=== PATIENT | female | born 1990 | race Caucasian/White ===

== ENCOUNTER 2017-12-14 16:00 | Emergency (ER) | payer BC, MEDICAID, OTHER ==
[2017-12-14] MEDS ORDERED: traMADol 50 MG Tab PO ONE (16:01)
[2017-12-14 16:05] VITALS: BP 110/69
--- NOTE | 2017-12-14 16:17 | EDM.PDOC ---
ED HPI GENERAL MEDICAL PROBLEM - General Chief Complaint: Upper Extremity Injury/Pain Stated Complaint: RIGHT SHOULDER PAIN Time Seen by Provider: 12/14/17 16:17 Source of Information: Reports: Patient History Limitations: Reports: No Limitations - History of Present Illness INITIAL COMMENTS - FREE TEXT/NARRATIVE: Clarissa is a 27 year old female who presents to the ED with complaints of right shoulder pain. She reports that on Saturday morning, she was doing her usual morning stretches and felt something pop. She then had instant pain in her right shoulder. She reports she made an appointment to be seen in the clinic on Saturday, but today she couldn't tolerate the pain so she came to the ED. She does report she has full ROM, but feels some "grinding" and has pain with certain movements. Denies any numbness or tingling of affected extremity. Denies any injury outside of the stretching. She has been taking Tylenol and ibuprofen for the pain without relief. Onset Date: 12/13/17 Duration: Constant Location: Reports: Upper Extremity, Right Quality: Reports: Ache, Burning, Stabbing Severity: Moderate Improves with: Reports: Medication Worsens with: Reports: Movement Context: Reports: Activity Associated Symptoms: Denies: Confusion, Chest Pain, Cough, cough w sputum, Diaphoresis, Fever/Chills, Headaches, Loss of Appetite, Malaise, Nausea/Vomiting , Rash, Seizure, Shortness of Breath (pain worse with deep breathing), Syncope, Weakness Right Shoulder Pain Score (Numeric/FACES): 6 - Related Data Allergies Allergy/AdvReac Type Severity Reaction Status Date / Time fluconazole Allergy Cannot Verified 02/16/16 02:37 Remember Home Meds: Home Meds Acetaminophen 650 mg PO Q4H PRN 12/14/17 [History] Past Medical History - Past Health History Medical/Surgical History: Denies Medical/Surgical History FLIGHT AGENT History: Reports: Other OB/BYN History: hx abnormal pap smears Endocrine/Metabolic History: Reports: Other (See Below) Other Endocrine/Metabolic History: abnormal TSH with - Past Surgical History Female Surgical History: Reports: Tubal Ligation Musculoskeletal Surgical History: Reports: Shoulder Surgery Social & Family History - Family History Family Medical History: Noncontributory - Tobacco Use Smoking Status *Q: Current Every Day Smoker Years of Tobacco use: 14 Packs/Tins Daily: 1 Used Tobacco, but Quit: No Second Hand Smoke Exposure: No - Caffeine Use Caffeine Use: Reports: Coffee - Alcohol Use Days Per Week of Alcohol Use: 0 - Recreational Drug Use Recreational Drug Use: No - Living Situation & Occupation Living situation: Reports: , with Spouse, with Family Occupation: Employed Review of Systems - Review of Systems Review Of Systems: ROS reveals no pertinent complaints other than HPI. ED EXAM, GENERAL - Physical Exam Exam: See Below Exam Limited By: No Limitations General Appearance: Alert, WD/WN, No Apparent Distress Head: Atraumatic, Normocephalic Neck: Normal Inspection, Supple, Non-Tender, Full Range of Motion Respiratory/Chest: No Respiratory Distress, Lungs Clear, Normal Breath Sounds, No Accessory Muscle Use, Chest Non-Tender Cardiovascular: Normal Peripheral Pulses, Regular Rate, Rhythm, No Edema, No Gallop, No JVD, No Murmur, No Rub Back Exam: Normal Inspection, Full Range of Motion, NT Extremities: Normal Range of Motion, Normal Capillary Refill, Arm Pain (right shoulder), Other (pain with ROM to right shoulder, crepitus, tenderness to posterior right scapula). No: Slow Capillary Refill, Joint Swelling, Increased Warmth Neurological: Alert, Oriented, CN II-XII Intact, Normal Cognition, Normal Gait, Normal Reflexes, No Motor/Sensory Deficits Psychiatric: Normal Affect, Normal Mood Skin Exam: Warm, Dry, Intact, Normal Color, No Rash Course - Vital Signs Last Recorded V/S: Last Vital Signs Temp 97.9 F 12/14/17 16:02 Pulse 76 12/14/17 16:02 Resp 16 12/14/17 16:02 BP 110/69 12/14/17 16:02 Pulse Ox 98 12/14/17 16:02 - Orders/Labs/Meds Meds: Medications Discontinued Medications Generic Name Dose Route Start Last Admin Trade Name Freq PRN Reason Stop Dose Admin Ketorolac Tromethamine 60 mg 12/14/17 16:32 12/14/17 16:35 Toradol IM 12/14/17 16:33 60 mg ONETIME ONE Administration Tramadol HCl 2 packet 12/14/17 16:56 12/14/17 17:05 Take Home: Tramadol 50 Mg, 4 Tab Pack PO 12/14/17 16:57 2 packet ONETIME ONE Administration - Re-Assessments/Exams Free Text/Narrative Re-Assessment/Exam: 12/14/17 16:55 Right shoulder xray shows no fracture or misalignment. Departure - Departure Time of Disposition: 16:55 Disposition: Home, Self-Care 01 Condition: Good Clinical Impression: Right shoulder strain Qualifiers: Encounter type: initial encounter Qualified Code(s): S46.911A - Strain of unspecified muscle, fascia and tendon at shoulder and upper arm level, right arm , initial encounter - Discharge Information Instructions: Shoulder Pain, [id number], Pain Medicine Instructions, Easy-to- Read Referrals: Sha Dietz PA-C [Physician Compliance Advisor] - Forms: ED Department Discharge Additional Instructions: Right shoulder xray negative Tramadol every 8 hours as needed for pain Alternate ice and heat to affected area for comfort Recommend PT. Patient does not wish to see PT at this time. Follow up with PCP this week if symptoms worsen or do not improve
[2017-12-14] MEDS ORDERED: Ketorolac 60 MG/2 ML SDV IM ONE (16:32)
[2017-12-14] MEDS ORDERED: Take Home: traMADol 50 MG, 4 Tab Pack PO ONE (16:56)
== END 2017-12-14 17:05 | disposition home or self-care (01) ==
LOC: CC.ED 16:00
DX: S46.911A Strain of unspecified muscle, fascia and tendon at shoulder and upper arm level, right arm, initial encounter (principal); F17.210 Nicotine dependence, cigarettes, uncomplicated; X50.9XXA Other and unspecified overexertion or strenuous movements or postures, initial encounter
CPT/HCPCS: 73030; 96372; 99283; A9270; J1885

== ENCOUNTER 2021-12-07 17:29 | Emergency (ER) | payer BC ==
[2021-12-07 17:50] VITALS: BP 108/83; PULSE 94
== END 2021-12-07 18:05 | disposition home or self-care (01) ==
LOC: CC.ED 17:29
DX: J10.1 Influenza due to other identified influenza virus with other respiratory manifestations (principal); Z88.8 Allergy status to other drugs, medicaments and biological substances; Z72.0 Tobacco use; Z20.822 Contact with and (suspected) exposure to COVID-19
CPT/HCPCS: 87804; 99283; U0002

== ENCOUNTER 2022-03-09 10:32 | Emergency (ER) | payer BC, MEDICAID ==
[2022-03-09 10:45] VITALS: BP 113/74; PULSE 69
[2022-03-09] MEDS ORDERED: Diphtheria,Pertussis(Acell),Tetanus Vaccine 0.5 ML Syringe IM ONE (10:51)
[2022-03-09] MEDS ORDERED: Lidocaine 1% 5 ML VIAL INJECT ONE (10:52)
[2022-03-09] MEDS ORDERED: Bacitracin Oint 28.35 GM Tube TOP ONE (10:53)
[2022-03-09] MEDS ORDERED: Bacitracin/Neomycin/Polymyxin B Oint 0.9 GM U/D Packet TOP ONE (11:02)
== END 2022-03-09 11:35 | disposition home or self-care (01) ==
LOC: CC.ED 10:32 → SUPCPDRO 10:32 → CC.ED 11:35
DX: S61.012A Laceration without foreign body of left thumb without damage to nail, initial encounter (principal); Z88.8 Allergy status to other drugs, medicaments and biological substances; Z72.0 Tobacco use; Z23 Encounter for immunization; W26.8XXA Contact with other sharp object(s), not elsewhere classified, initial encounter
CPT/HCPCS: 12001; 90471; 90715; 99283; 99283-25; A9270-GY

== ENCOUNTER 2023-09-05 18:27 | Emergency (ER) | payer BC, MEDICAID ==
[2023-09-05 18:55] LABS: BASOPHILS ABSOLUTE AUTO 0.08 10^3/uL (0.00-0.50); BASOPHILS PERCENT AUTO 0.6 % (0-1); EOSINOPHILS ABSOLUTE AUTO 0.19 10^3/uL (0.00-1.50); EOSINOPHILS PERCENT AUTO 1.5 % (0-6); HEMATOCRIT 38.3 % (37.0-47.0); HEMOGLOBIN 13.1 g/dL (12.0-16.0); IMMATURE GRAN ABSOLUTE AUTO 0.01 10^3/uL (0.00-0.49); IMMATURE GRAN PERCENT AUTO 0.1 % (0.0-4.9); LYMPHOCYTES ABSOLUTE AUTO 3.68 10^3/uL (0.60-5.00); LYMPHOCYTES PERCENT AUTO 29.1 % (24-44); MEAN CORPUSCULAR HEMOGLOBIN 31.5 pg (27.0-32.0); MEAN CORPUSCULAR HGB CONC 34.2 g/dL (32.0-36.0); MEAN CORPUSCULAR VOLUME 92.1 fL (83.0-97.0); MONOCYTES ABSOLUTE AUTO 1.01 10^3/uL (0.00-1.50); NEUTROPHILS ABSOLUTE AUTO 7.67 x10^3/uL (1.80-8.00); NEUTROPHILS PERCENT AUTO 60.7 % (41-71); PLATELET COUNT,PLT 286 10^3/uL (150-400); RED BLOOD CELL COUNT 4.16 x10^6/uL (4.00-5.50); WHITE BLOOD CELL COUNT,WBC 12.6 10^3/uL (4.0-11.0)
[2023-09-05] MEDS ORDERED: Iopamidol 755 Mg/ML 100 ML Bottle IVPUSH ONE (18:55)
[2023-09-05] MEDS ORDERED: Sodium Chloride 0.9% 1,000 ML IV ONE (19:05)
[2023-09-05 19:08] LABS: ALANINE AMINOTRANSFERASE,ALT 18 U/L (12-78); ALBUMIN 3.9 g/dL (3.4-5.0); ALKALINE PHOSPHATASE 58 U/L (46-116); ASPARTATE AMNIOTRANSFERASE,AST 11 U/L (15-37); BILIRUBIN TOTAL 0.2 mg/dL (0.0-1.0); BLOOD UREA NITROGEN,BUN 6 mg/dL (7-18); C-REACTIVE PROTEIN 0.07 mg/dL (<=0.30); CALCIUM 9.2 mg/dL (8.4-10.1); CARBON DIOXIDE,CO2 27 mmol/L (21-32); CHLORIDE,CL 103 mEq/L (98-106); CREATININE 0.6 mg/dL (0.6-1.0); GLUCOSE RANDOM 89 mg/dL (75-99); LIPASE 37 U/L (16-77); POTASSIUM,K 3.6 mEq/L (3.5-5.0); PROTEIN TOTAL,TP 7.2 g/dL (6.4-8.2); SODIUM,NA 138 mEq/L (136-145)
[2023-09-05 19:09] LABS: ESTIMATED GFR 121 mL/min (>=60)
[2023-09-05 19:16] LABS: APPEARANCE,URINE CLEAR (CLEAR); BILIRUBIN,URINE NEGATIVE (NEGATIVE); COLOR,URINE YELLOW (YELLOW); GLUCOSE,URINE NEGATIVE (NEGATIVE); KETONES,URINE NEGATIVE (NEGATIVE); LEUKOCYTE ESTERASE,URINE NEGATIVE (NEGATIVE); NITRITE,URINE NEGATIVE (NEGATIVE); OCCULT BLOOD,URINE TRACE-INTACT (NEGATIVE); PH,URINE 7.5 (4.5-8.0); PROTEIN,URINE NEGATIVE (NEGATIVE); UROBILINOGEN,URINE 0.2 EU/dL (0.2-1.0)
[2023-09-05 19:22] LABS: BACTERIA,URINE FEW /HPF (NOT SEEN); EPITHELIAL CELLS,URINE FEW /HPF (NOT SEEN); RBC,URINE 0-5 /HPF (0-5); WBC,URINE 0-5 /HPF (0-5)
[2023-09-05] MEDS ORDERED: Take Home: Acetaminophen/HYDROcodone 325-5 MG, 2 Tab Pack PO ONE (20:29)
[2023-09-05 20:56] VITALS: BP 118/72; PULSE 72
== END 2023-09-05 20:45 | disposition home or self-care (01) ==
LOC: CC.ED 18:27
DX: R10.2 Pelvic and perineal pain (principal); Z88.8 Allergy status to other drugs, medicaments and biological substances
CPT/HCPCS: 36415; 74177; 80053; 81001; 83690; 83735; 85025; 86140; 96360; 99284; A9270; J7030; Q9967

== ENCOUNTER 2024-10-10 15:58 | Emergency (ER) | payer BC, MEDICAID ==
[2024-10-10 16:01] VITALS: BP 103/62; PULSE 80
[2024-10-10] MEDS: predniSONE 20 MG Tab PO STA (16:36)
== END 2024-10-10 16:44 | disposition home or self-care (01) ==
LOC: CC.ED 15:58
DX: M25.561 Pain in right knee (principal); F17.210 Nicotine dependence, cigarettes, uncomplicated; Z79.52 Long term (current) use of systemic steroids; Z79.899 Other long term (current) drug therapy; Z88.8 Allergy status to other drugs, medicaments and biological substances
CPT/HCPCS: 73560-RT; 99283; J7512